=== PATIENT | female | born 1975 | race Caucasian/White ===

== ENCOUNTER → 2024-03-08 15:21 | Outpatient (REF) | payer OTHER, SELFPAY | LOC: HWWDC 15:21 | PROVIDERS: ATTENDING PHYSICIAN Nurse Practitioner Women's Health; FAMILY PHYSICIAN Family Medicine | DX: Z12.31 Encounter for screening mammogram for malignant neoplasm of breast (principal) | CPT/HCPCS: 77063; 77067 ==

== ENCOUNTER 2024-06-15 20:17 | Emergency (ER) | payer OTHER, SELFPAY ==
[2024-06-15 20:19] VITALS: BP 174/111
[2024-06-15 21:11] VITALS: BP 149/83; BMI 19.0
--- NOTE | 2024-06-15 22:28 | ED.GENMED ---
History of Present Illness
General
Chief Complaint: Musculo-Skeletal Complaint
Source: patient
Exam Limitations: none
Time Seen by Provider: 06/15/24 21:48
History of Present Illness
History of Present Illness:
This is a 48 year old female that comes in with c/o left ankle pain. States that she was out Trick or treating with the kids and she was on the phone. States that she was not watching were she was going and she tripped off the edge of the sidewalk.
States that she hurt the left ankle. Denies hitting her head or any LOC. Denies any fever, chills, nausea, vomiting, diarrhea, headache, dizziness.
Past History
Past History
ED Past Medical History: None; Negative Asthma, HTN, Hypercholesterolemia or NIDDM
ED Past Surgical History: Other (Nasal surgery)
Social History
Tobacco: Former smoker
Alcohol: Occasional
Personal:
Living: with family
Employment: Employed
Review of Systems
Review of Systems
All Other Systems: ROS reviewed and negative except as documented in HPI and ROS
Constitutional: Reports no symptoms; Denies fever or chills
EENT: Reports no symptoms
Respiratory: Reports no symptoms; Denies cough or trouble breathing
Cardiac: Reports no symptoms; Denies chest pain
ABD/GI: Reports no symptoms; Denies abdominal pain, nausea, vomiting or diarrhea
: Reports no symptoms
Musculoskeletal: Reports joint pain (Left ankle pain)
Skin: Reports no symptoms
Neurological: Reports no symptoms; Denies dizzy or headache
Psychiatric: Reports no symptoms
Phy Exam
General Physical Exam
General Presentation: well appearing and no apparent distress
General age: appears stated age
General Skin: warm and dry
General Habitus: normal
General Mental: alert
General Hydration: appears well hydrated
Eye Exam
Eye Exam: EOMI
Musculoskeletal Exam
Musculoskeletal Exam: other (Left lateral ankle tenderness with palpation. discomfort with planter flexion. )
Skin Exam
Skin Exam: normal color, warm/dry, no rash and no petechia
Psychiatric Exam
Psychiatric Exam: normal mood/affect
Course
Orders/Labs/Results
Orders:
Orders
06/15/24 20:22
Ankle, left 3 view CR [CR Ankle - Left Min 3 Views ] Urgent
Comment:
Reason For Exam: twisted left ankle
Vital Signs
Initial and Last Documented VS:
Initial Vital Signs
Temp Pulse Resp BP Pulse Ox
98 F 102 18 174/111 98
06/15/24 20:19 06/15/24 20:19 06/15/24 20:19 06/15/24 20:19 06/15/24 20:19
Last Documented Vital Signs
Temp Pulse Resp BP Pulse Ox
98 F 102 18 149/83 97
06/15/24 20:19 06/15/24 20:19 06/15/24 20:19 06/15/24 21:11 06/15/24 21:45
MDM/Problems Addressed
Differential Diagnosis Includes:
ankle fracture, Ankle sprain
MDM/Problems Addressed:
This is a 48 year old female that comes in with c/o left ankle pain after tripping of the side of the sidewalk.
Explained to patient that she has a left ankle fracture. Will place patient in a walking boat and crutches. Patient to follow up with the land conservation specialist. Rest, elevated and ice. Return with any concerns.
Chronic conditions affecting care:
NA
Acute Exacerbation and/or Progression of Chronic Illness:
NA
*Radiology
Radiology exam reviewed: radiology read reviewed (Left ankle=Transverse fractures of the distal left fibula)
*Pulse Oximetry
Patient hypoxic: no
*EKG
Interpreted by ED Provider?: NA
Rate: EKG- N/A
*Public Bath Attendant Interpretation
Rate: Public Bath Attendant- N/A
*Critical Care Note
Total Time (30-74mins, 75-104mins- exclusive of procedures): Not Applicable
ED Attending Note
-
Portions of this chart may have been created with voice recognition software.� Occasional wrong word or��sound alike� substitutions may have occurred due to the inherent limitations of voice recognition software.
Discharge Plan
Departure
Patient Disposition: Home (Routine Discharge)
Date of Disposition: 06/15/24
Time of Disposition: 22:34
Patient with high blood pressure during this ER visit?: Yes
Condition: Good
Covid-19: Not Applicable
Discharge Problem:
Closed fracture of distal end of left fibula
Instructions: How to Use Crutches, Ankle Fracture (DC), BLOOD PRESSURE, RICE Therapy
Referrals:
Denise Schuster DO [Family Provider] -
Dallin Diaz MD [Active] - Follow up in 2-3 days
Activity Restrictions/Additional Instructions:
As discussed, you have a fracture of the distal left fibula. Please ray the boat when up moving around. You can weight bare as tolerated. Tylenol or Ibuprofen as needed for any pain. Rest, ice and elevate. Follow up with the land conservation specialist
for further evaluation. IF YOU HAVE INCREASED OR CHANGING PAIN, OR YOU HAVE ANY OTHER CONCERNS PLEASE RETURN TO THE EMERGENCY ROOM.
Interventions
Interventions:
*Risk Screen - Suicide Last Done: 06/15/24 20:19
*General Assessment Last Done: 06/15/24 20:19
*Neglect/Abuse Screening Last Done: 06/15/24 20:19
*ED COVID-19 Vaccine History Last Done: 06/15/24 21:11
ED-Musculoskeletal Assessment Last Done: 06/15/24 21:11
Discharge Date and Time
Print Language: SYRIAC
[2024-06-15] MEDS: MOTRIN 600 MG PO (22:58)
== END 2024-06-15 23:11 | disposition home or self-care (01) ==
LOC: EMR 20:17
PROVIDERS: EMERGENCY PHYSICIAN Emergency Medicine; FAMILY PHYSICIAN Family Medicine
DX: S82.422A Displaced transverse fracture of shaft of left fibula, initial encounter for closed fracture (principal); X50.1XXA Overexertion from prolonged static or awkward postures, initial encounter; Z87.891 Personal history of nicotine dependence
CPT/HCPCS: 99283; 73610

== ENCOUNTER → 2025-08-10 11:52 | Outpatient (REF) | payer OTHER, SELFPAY | LOC: WDC 11:52 | PROVIDERS: ATTENDING PHYSICIAN Nurse Practitioner Women's Health; FAMILY PHYSICIAN Family Medicine | DX: Z12.31 Encounter for screening mammogram for malignant neoplasm of breast (principal) | CPT/HCPCS: 77063; 77067 ==